=== PATIENT | male | born 1940 | race Two or more races ===

== ENCOUNTER 2024-08-27 13:42 | Inpatient (IN) | payer OTHER ==
[~2024-08-27] VITALS: Ht 177.8 cm; Wt 54.0 kg
[2024-08-27] MEDS: CEFEPIME 1 GM in IV D5W 50 ML IV ONE (14:36)
[2024-08-27] MEDS: VANCOMYCIN 1 GM in IV D5W 250 ML IV ONE (14:59)
[2024-08-27 15:01] LABS: BASOPHILS % (AUTO) 0.2 % (0.0-2.0); EOSINOPHILS # (AUTO) 0.1 K/uL (0.0-0.7); EOSINOPHILS % (AUTO) 0.6 % (0.0-6.0); HEMATOCRIT 32 % (39-51); HEMOGLOBIN 11.3 g/dL (13.5-17.5); LYMPHOCYTES # (AUTO) 0.7 K/uL (0.8-4.8); LYMPHOCYTES % (AUTO) 8.4 % (20.0-44.0); MEAN CORPUSCULAR HEMOGLOBIN 31 PG (26.0-33.0); MEAN CORPUSCULAR HGB CONC 35 g/dl (31.0-36.0); MEAN CORPUSCULAR VOLUME 88 fL (80-96); MONOCYTES # (AUTO) 0.7 K/uL (0.1-1.30); MONOCYTES % (AUTO) 8.6 % (2.0-12.0); NEUTROPHILS # (AUTO) 6.8 K/uL (1.8-8.9); NEUTROPHILS % (AUTO) 82.2 % (43.0-81.0); PLATELET COUNT (AUTO) 183 K/uL (150-450); RED BLOOD CELL COUNT(AUTO) 3.67 MIL/uL (4.5-6.0); RED CELL DISTRIBUTION WIDTH 21.9 % (11.5-15.0); WHITE BLOOD COUNT (AUTO) 8.3 K/uL (4.3-11.0)
[2024-08-27 15:30] LABS: BILIRUBIN,URINE Negative (NEGATIVE); BLOOD, URINE Large Ery/uL (NEGATIVE); KETONES,URINE Negative (NEGATIVE); LEUKOCYTE ESTERASE ,URINE Negative (NEGATIVE); NITRITE, URINE Negative (NEGATIVE); PH,URINE >8.5 (5.0-8.0); PROTEIN,URINE >=300 mg/dl (NEGATIVE); UGLUCOSE 250 MG/DL mg/dL (NEGATIVE); UROBILINOGEN,URINE 0.2 EU/dL (0.2)
[2024-08-27 15:34] LABS: LACTIC ACID 2.3 mmol/L (0.4-2.0)
[2024-08-27 15:50] LABS: ALANINE AMINOTRANSFERASE 6 U/L (12-78); ALBUMIN 2.7 g/dL (3.4-5.0); ALKALINE PHOSPHATASE 67 U/L (46-116); ASPARTATE AMINOTRANSFERASE 20 U/L (15-37); BILIRUBIN,DIRECT 0.2 mg/dL (0.0-0.2); BILIRUBIN,TOTAL 0.4 mg/dL (0.2-1.0); CALCIUM, SERUM 10.3 mg/dL (8.5-10.1); CARBON DIOXIDE 30 mmol/L (21-32); CHLORIDE 103 mmol/L (98-107); CREATININE 5.2 mg/dL (0.6-1.3); GLUCOSE 100 mg/dL (74-106); POTASSIUM 5.7 mmol/L (3.5-5.1); SODIUM SERUM 138 mmol/L (136-145); TOTAL PROTEIN, SERUM 7.2 g/dL (6.4-8.2); UREA NITROGEN, BLOOD 38 mg/dL (7-18)
[2024-08-27 16:19] LABS: COLOR,URINE RED (YELLOW)
[2024-08-27 16:20] LABS: APPEARANCE,URINE CLOUDY (CLEAR)
[2024-08-27 16:22] LABS: ADD URINE CULTURE NO; BACTERIA,URINE Rare /HPF (None Seen); RBC,URINE TOO NUMEROUS TO COUN /HPF (0-2); SQUAMOUS EPITHELIAL CELL,UR None Seen /HPF (None Seen); WBC,URINE 0-2 /HPF (0-3)
[2024-08-27 18:22] LABS: INR 1.03 (0.91-1.10); PARTIAL THROMBOPLASTIN TIME 22.7 SEC (24.3-34.3); PROTHROMBIN TIME 10.6 SECS (9.2-11.1)
[2024-08-27] MEDS ORDERED: AMLO-213 PO (18:26)
[2024-08-27] MEDS ORDERED: TURM1CAP2 PO (18:26)
[2024-08-27] MEDS ORDERED: FINA5TAB11 PO (18:26)
[2024-08-27] MEDS ORDERED: POLY119P3 PO (18:26)
[2024-08-27] MEDS ORDERED: CALC0.253 PO (18:26)
[2024-08-27] MEDS ORDERED: HYDR25SU7 RC (18:26)
[2024-08-27] MEDS ORDERED: FOLI0.8T2 PO (18:26)
[2024-08-27] MEDS ORDERED: CETI10TA14 PO (18:26)
[2024-08-27] MEDS ORDERED: MAGN250T10 PO (18:26)
[2024-08-27] MEDS ORDERED: CARB1TAB31 PO ×2 (18:26)
[2024-08-27] MEDS ORDERED: ATOR20TA PO (18:26)
[2024-08-27] MEDS ORDERED: HYDR-4076 PO (18:26)
[2024-08-27] MEDS ORDERED: DOCU-275 PO (18:26)
[2024-08-27] MEDS ORDERED: GABA-532 PO (18:26)
[2024-08-27] MEDS ORDERED: MONT10TA22 PO (18:26)
[2024-08-27] MEDS ORDERED: CHOL100043 PO (18:26)
[2024-08-27] MEDS ORDERED: MESA4ENE4 RC (18:26)
[2024-08-27] MEDS ORDERED: ALBU8.5H8 IH (18:26)
[2024-08-27] MEDS: DOCUSATE SODIUM 100 MG CAPSULE PO SCH (18:30)
[2024-08-27] MEDS: CARBIDOPA/LEVODOPA 10/100 MG 1 UDTAB PO SCH (18:30)
[2024-08-27] MEDS ORDERED: hydrALAZINE HCL 25 MG TABLET PO PRN (18:30)
[2024-08-27] MEDS ORDERED: ONDANSETRON HCL/PF 4 MG/2 ML VIAL IVP PRN (18:30)
[2024-08-27] MEDS ORDERED: CARBIDOPA/LEVODOPA 10/100 MG 1 UDTAB PO SCH (18:30)
[2024-08-27] MEDS ORDERED: ACETAMINOPHEN 325 MG TABLET PO PRN (18:30)
[2024-08-27] MEDS: GABAPENTIN 100 MG CAPSULE PO SCH (22:00)
[2024-08-27] MEDS: MONTELUKAST SODIUM (10MG) 10 MG TABLET PO SCH (22:00)
[2024-08-27] MEDS: ATORVASTATIN 10 MG TABLET PO SCH (22:00)
[2024-08-27] MEDS: OSELTAMIVIR PHOSPHATE SUSP 6 MG/ML BOTTLE PO ONE (22:00)
[2024-08-27 23:48] VITALS: O2SAT 97
[2024-08-28] VITALS: BP 134/48; TEMP 100; O2SAT 96
[2024-08-28] MEDS ORDERED: ACETAMINOPHEN 650 MG/SUPP.RECT RC ONE (00:05)
[2024-08-28] MEDS: ACETAMINOPHEN 650 MG/SUPP.RECT RC PRN (00:11)
[2024-08-28] MEDS: IV NS 0.9% 1,000 ML IV PRN (00:27)
[2024-08-28] MEDS: HEPARIN SODIUM, PORCINE 5000 UNITS/1 ML VIAL SQ SCH (01:23)
[2024-08-28 04:00] VITALS: BP 140/89; TEMP 98.2; O2SAT 99
[2024-08-28 06:41] LABS: HEMATOCRIT 30 % (39-51); HEMOGLOBIN 10.2 g/dL (13.5-17.5); LYMPHOCYTES # (AUTO) 0.5 K/uL (0.8-4.8); LYMPHOCYTES % (AUTO) 3.4 % (20.0-44.0); MEAN CORPUSCULAR HEMOGLOBIN 29 PG (26.0-33.0); MEAN CORPUSCULAR HGB CONC 34 g/dl (31.0-36.0); MEAN CORPUSCULAR VOLUME 86 fL (80-96); MONOCYTES # (AUTO) 0.5 K/uL (0.1-1.30); MONOCYTES % (AUTO) 4.1 % (2.0-12.0); NEUTROPHILS # (AUTO) 12.2 K/uL (1.8-8.9); NEUTROPHILS % (AUTO) 92.5 % (43.0-81.0); PLATELET COUNT (AUTO) 134 K/uL (150-450); RED BLOOD CELL COUNT(AUTO) 3.49 MIL/uL (4.5-6.0); RED CELL DISTRIBUTION WIDTH 22.1 % (11.5-15.0); WHITE BLOOD COUNT (AUTO) 13.2 K/uL (4.3-11.0)
[2024-08-28 06:54] LABS: CALCIUM, SERUM 9.4 mg/dL (8.5-10.1); MAGNESIUM 2.2 mg/dL (1.8-2.4); PHOSPHORUS 4.7 mg/dL (2.5-4.9); POTASSIUM 5.8 mmol/L (3.5-5.1)
[2024-08-28 08:00] VITALS: BP 140/63; TEMP 97.5; O2SAT 95
[2024-08-28] MEDS ORDERED: OSELTAMIVIR PHOSPHATE 75 MG CAPSULE PO SCH (08:00)
[2024-08-28] MEDS: CARBIDOPA/LEVODOPA 10/100 MG 1 UDTAB PO SCH (09:00)
[2024-08-28] MEDS: CALCITRIOL 0.25 MCG CAPSULE PO SCH (09:00)
[2024-08-28] MEDS: VIT B CMPLX 3/FA/VIT C/BIOTIN 1 TAB TABLET PO SCH (09:58)
[2024-08-28] MEDS: cetrizine 10 MG TABLET PO SCH (09:58)
[2024-08-28] MEDS: CHOLECALCIFEROL 1,000 UNIT TABLET (VIT D3) PO SCH (09:58)
[2024-08-28] MEDS: THERAHONEY GEL 1.5 OZ TUBE TP SCH (09:59)
[2024-08-28] MEDS: FINASTERIDE (5 MG) 5 MG TABLET PO SCH (09:59)
[2024-08-28] MEDS: AMLODIPINE BESYLATE 10 MG TABLET PO SCH (09:59)
[2024-08-28 12:00] VITALS: BP 119/63; TEMP 99; O2SAT 95
[2024-08-28 16:00] VITALS: BP 121/59; TEMP 99.1; O2SAT 96
[2024-08-28] MEDS ORDERED: LEVOFLOXACIN 250 MG /D5W 50 ML 250 MG in PREMIX 1 EA IV SCH (20:00)
[2024-08-28] MEDS ORDERED: LEVOFLOXACIN (250MG) 250 MG TABLET PO SCH (21:00)
== END 2024-08-28 22:08 | disposition short-term general hospital (02) | DRG 193 ==
LOC: ER 13:45 → TELE1 23:01 → TELE-TD 08-28 00:18 → TELE1 08-28 11:41
PROVIDERS: ADMIT Nurse Practitioner Acute Care
PROC: 5A1D70Z Performance of Urinary Filtration, Intermittent, Less than 6 Hours Per Day (ICD-10-PCS; principal; 2024-08-28)
DX: J10.08 Influenza due to other identified influenza virus with other specified pneumonia (principal); G93.41 Metabolic encephalopathy; J96.01 Acute respiratory failure with hypoxia; N18.6 End stage renal disease; I12.0 Hypertensive chronic kidney disease with stage 5 chronic kidney disease or end stage renal disease; E44.0 Moderate protein-calorie malnutrition; E87.20 Acidosis, unspecified; J15.9 Unspecified bacterial pneumonia; E86.0 Dehydration; Z20.822 Contact with and (suspected) exposure to COVID-19; F02.80 Dementia in other diseases classified elsewhere, unspecified severity, without behavioral disturbance, psychotic disturbance, mood disturbance, and anxiety; G20.A1 Parkinson's disease without dyskinesia, without mention of fluctuations; Z88.0 Allergy status to penicillin; Z79.51 Long term (current) use of inhaled steroids; Z79.899 Other long term (current) drug therapy; E87.5 Hyperkalemia; M89.8X9 Other specified disorders of bone, unspecified site; E88.09 Other disorders of plasma-protein metabolism, not elsewhere classified; D64.9 Anemia, unspecified; Z86.73 Personal history of transient ischemic attack (TIA), and cerebral infarction without residual deficits; Z99.2 Dependence on renal dialysis; L89.156 Pressure-induced deep tissue damage of sacral region
CPT/HCPCS: 31720; 36415; 70450-TC; 71045-TC; 80048-TC; 80076-TC; 81001; 83605-TC; 83735-TC; 84100-TC; 84484-TC; 85025-TC; 85730-TC; 86706; 87040-TC; 87086-TC; 87340; 90935-TC; A4223; A4624; A6403; G0378; J0692; J1644; J3370; J7030; J7060

== ENCOUNTER 2024-09-07 16:15 | Inpatient (IN) | payer OTHER ==
[~2024-09-07] VITALS: Ht 175.3 cm; Wt 60.8 kg
[~2024-09-07 16:15] MED LIST: ALBU8.5H8 IH; AMLO-213 PO; ATOR20TA PO; CALC0.253 PO; CARB1TAB31 PO; CETI10TA14 PO; CHOL100043 PO; DOCU-275 PO; FINA5TAB11 PO; FOLI0.8T2 PO; GABA-532 PO; HYDR-4076 PO; HYDR25SU7 RC; MAGN250T10 PO; MESA4ENE4 RC; MONT10TA22 PO; POLY119P3 PO; TURM1CAP2 PO
[2024-09-07 16:41] LABS: ABG BASE EXCESS 1.4 mmol/L (-2.0-3.0); ABG OXYGEN SATURATION 93.8 % (94.0-98.0); ABG PCO2 38.6 mmHg (35.0-48.0); ABG PH 7.438 (7.350-7.450); ABG TOTAL HEMOGLOBIN 11.5 G/dL (13.5-17.5); MetHb 0.3 % (0.0-1.5); O2Hb 93.5 % (94.0-97.0); SITE, ABG RIGHT BRACHIAL
[2024-09-07 17:40] LABS: BASOPHILS % (AUTO) 0.1 % (0.0-2.0); EOSINOPHILS % (AUTO) 0.1 % (0.0-6.0); HEMATOCRIT 33 % (39-51); HEMOGLOBIN 10.9 g/dL (13.5-17.5); LYMPHOCYTES # (AUTO) 0.4 K/uL (0.8-4.8); LYMPHOCYTES % (AUTO) 2.5 % (20.0-44.0); MEAN CORPUSCULAR HEMOGLOBIN 27 PG (26.0-33.0); MEAN CORPUSCULAR HGB CONC 33 g/dl (31.0-36.0); MEAN CORPUSCULAR VOLUME 82 fL (80-96); MONOCYTES # (AUTO) 1.2 K/uL (0.1-1.30); MONOCYTES % (AUTO) 6.9 % (2.0-12.0); NEUTROPHILS # (AUTO) 15.4 K/uL (1.8-8.9); NEUTROPHILS % (AUTO) 90.4 % (43.0-81.0); PLATELET COUNT (AUTO) 252 K/uL (150-450); RED BLOOD CELL COUNT(AUTO) 4.05 MIL/uL (4.5-6.0); RED CELL DISTRIBUTION WIDTH 21.9 % (11.5-15.0)
[2024-09-07 17:52] LABS: INR 1.23 (0.91-1.10); PARTIAL THROMBOPLASTIN TIME 27.3 SEC (24.3-34.3); PROTHROMBIN TIME 12.9 SECS (9.2-11.1)
[2024-09-07 17:55] LABS: CALCIUM, SERUM 8.9 mg/dL (8.5-10.1); CARBON DIOXIDE 27 mmol/L (21-32); CHLORIDE 100 mmol/L (98-107); CREATININE 3.6 mg/dL (0.6-1.3); GLUCOSE 108 mg/dL (74-106); POTASSIUM 5.5 mmol/L (3.5-5.1); SODIUM SERUM 136 mmol/L (136-145); UREA NITROGEN, BLOOD 18 mg/dL (7-18)
[2024-09-07 18:00] LABS: ALANINE AMINOTRANSFERASE 9 U/L (12-78); ALKALINE PHOSPHATASE 74 U/L (46-116); ASPARTATE AMINOTRANSFERASE 49 U/L (15-37); BILIRUBIN,DIRECT 0.1 mg/dL (0.0-0.2); BILIRUBIN,TOTAL 0.8 mg/dL (0.2-1.0); TOTAL PROTEIN, SERUM 7.5 g/dL (6.4-8.2)
[2024-09-07 18:04] LABS: LACTIC ACID 2.4 mmol/L (0.4-2.0)
[2024-09-07] MEDS: AZTREONAM 2 G in IV NS 0.9% 100 ML IV ONE (19:10)
[2024-09-07] MEDS: VANCOMYCIN 1 GM in IV D5W 250 ML IV ONE (20:00)
[2024-09-07] MEDS ORDERED: MAGNESIUM HYDROXIDE 30 ML UDC PO PRN (20:30)
[2024-09-07] MEDS ORDERED: MESALAMINE RC PRN (20:30)
[2024-09-07] MEDS ORDERED: ALBUTEROL SULFATE 8 GM HFA.AER.AD IH PRN (20:30)
[2024-09-07] MEDS ORDERED: ACETAMINOPHEN 325 MG TABLET PO PRN (20:30)
[2024-09-07] MEDS ORDERED: Z GUARD REMEDY 4 OZ OINT TP PRN (20:30)
[2024-09-07] MEDS ORDERED: ONDANSETRON HCL/PF 4 MG/2 ML VIAL IVP PRN (20:30)
[2024-09-07] MEDS ORDERED: MAG HYDROX/AL HYDROX/SIMETH 30 ML UDC PO PRN (20:30)
[2024-09-07] MEDS ORDERED: hydrALAZINE HCL 25 MG TABLET PO PRN (20:30)
[2024-09-08] MEDS ORDERED: SODIUM ZIRCONIUM CYCLOSILICATE 5 GM POWD.PACK ONE (01:46)
[2024-09-08] MEDS ORDERED: GABAPENTIN 100 MG CAPSULE ONE (01:47)
[2024-09-08] MEDS: SODIUM ZIRCONIUM CYCLOSILICATE 10 GM POWD.PACK PO ONE (01:49)
[2024-09-08] MEDS: MONTELUKAST SODIUM (10MG) 10 MG TABLET PO SCH (01:49)
[2024-09-08] MEDS: CARBIDOPA/LEVODOPA 10/100 MG 1 UDTAB PO SCH ×2 (01:49→09:00)
[2024-09-08] MEDS: GABAPENTIN 100 MG CAPSULE PO SCH (01:49)
[2024-09-08 04:28] LABS: ABG BASE EXCESS 6.3 mmol/L (-2.0-3.0); ABG OXYGEN SATURATION 96.5 % (94.0-98.0); ABG PCO2 38.7 mmHg (35.0-48.0); ABG PH 7.504 (7.350-7.450); ABG PO2 92.7 mmHg (83.0-108.0); ABG TOTAL HEMOGLOBIN 10.8 G/dL (13.5-17.5); COHb 0.3 % (0.5-1.5); MetHb 0.3 % (0.0-1.5); O2Hb 95.9 % (94.0-97.0); SITE, ABG RIGHT RADIAL
[2024-09-08] MEDS ORDERED: AZTREONAM 1 G in IV NS 0.9% 100 ML IV SCH (05:00)
[2024-09-08 05:56] LABS: BASOPHILS % (AUTO) 0.1 % (0.0-2.0); EOSINOPHILS % (AUTO) 0.4 % (0.0-6.0); HEMATOCRIT 31 % (39-51); HEMOGLOBIN 11.3 g/dL (13.5-17.5); LYMPHOCYTES # (AUTO) 0.6 K/uL (0.8-4.8); LYMPHOCYTES % (AUTO) 4.9 % (20.0-44.0); MEAN CORPUSCULAR HEMOGLOBIN 32 PG (26.0-33.0); MEAN CORPUSCULAR HGB CONC 36 g/dl (31.0-36.0); MEAN CORPUSCULAR VOLUME 88 fL (80-96); MONOCYTES % (AUTO) 8.5 % (2.0-12.0); NEUTROPHILS # (AUTO) 10.1 K/uL (1.8-8.9); NEUTROPHILS % (AUTO) 86.1 % (43.0-81.0); PLATELET COUNT (AUTO) 210 K/uL (150-450); RED BLOOD CELL COUNT(AUTO) 3.58 MIL/uL (4.5-6.0); RED CELL DISTRIBUTION WIDTH 21.2 % (11.5-15.0); WHITE BLOOD COUNT (AUTO) 11.7 K/uL (4.3-11.0)
[2024-09-08 06:05] LABS: CALCIUM, SERUM 9.3 mg/dL (8.5-10.1); CREATININE 4.2 mg/dL (0.6-1.3); MAGNESIUM 2.1 mg/dL (1.8-2.4); PHOSPHORUS 4.2 mg/dL (2.5-4.9); POTASSIUM 4.1 mmol/L (3.5-5.1)
[2024-09-08] MEDS: AZTREONAM 1 G in IV NS 0.9% 100 ML IV SCH (07:52)
[2024-09-08] MEDS ORDERED: VANCOMYCIN POST DIALYSIS 500MG IV PRN (08:00)
[2024-09-08 09:00] VITALS: BP 163/50; TEMP 97.7; O2SAT 100
[2024-09-08] MEDS: FINASTERIDE (5 MG) 5 MG TABLET PO SCH (09:00)
[2024-09-08] MEDS: AMLODIPINE BESYLATE 10 MG TABLET PO SCH (09:00)
[2024-09-08] MEDS: CHOLECALCIFEROL 1,000 UNIT TABLET (VIT D3) PO SCH (09:00)
[2024-09-08] MEDS: CALCITRIOL 0.25 MCG CAPSULE PO SCH (09:00)
[2024-09-08] MEDS: VIT B CMPLX 3/FA/VIT C/BIOTIN 1 TAB TABLET PO SCH (09:00)
[2024-09-08] MEDS: ATORVASTATIN 10 MG TABLET PO SCH (09:00)
[2024-09-08] MEDS: DOCUSATE SODIUM 100 MG CAPSULE PO SCH (17:35)
[2024-09-08] MEDS ORDERED: NEPRO VAN 237 ML CAN PO PRN (18:00)
[2024-09-08 20:00] VITALS: BP 151/62; TEMP 97.9; O2SAT 97
== END 2024-09-09 | disposition short-term general hospital (02) | DRG 871 ==
LOC: ER 16:20 → TRANSITION 09-08 03:36 → TELE1 09-08 06:06
PROVIDERS: ADMIT Nurse Practitioner Acute Care; ATTEND Internal Medicine
PROC: 05HB33Z Insertion of Infusion Device into Right Basilic Vein, Percutaneous Approach (ICD-10-PCS; principal; 2024-09-07)
PROC: 5A1D70Z Performance of Urinary Filtration, Intermittent, Less than 6 Hours Per Day (ICD-10-PCS; 2024-09-08)
DX: A41.9 Sepsis, unspecified organism (principal); G93.41 Metabolic encephalopathy; J15.69 Pneumonia due to other Gram-negative bacteria; J96.01 Acute respiratory failure with hypoxia; N18.6 End stage renal disease; E44.0 Moderate protein-calorie malnutrition; J44.0 Chronic obstructive pulmonary disease with (acute) lower respiratory infection; I13.2 Hypertensive heart and chronic kidney disease with heart failure and with stage 5 chronic kidney disease, or end stage renal disease; I48.20 Chronic atrial fibrillation, unspecified; D68.59 Other primary thrombophilia; E87.20 Acidosis, unspecified; Z20.822 Contact with and (suspected) exposure to COVID-19; G20.A1 Parkinson's disease without dyskinesia, without mention of fluctuations; Z88.0 Allergy status to penicillin; Z79.51 Long term (current) use of inhaled steroids; Z79.899 Other long term (current) drug therapy; I50.9 Heart failure, unspecified; M89.8X9 Other specified disorders of bone, unspecified site; Z87.19 Personal history of other diseases of the digestive system; E87.5 Hyperkalemia; N40.0 Benign prostatic hyperplasia without lower urinary tract symptoms; E88.09 Other disorders of plasma-protein metabolism, not elsewhere classified; E78.5 Hyperlipidemia, unspecified; F09 Unspecified mental disorder due to known physiological condition; Z99.2 Dependence on renal dialysis; D63.1 Anemia in chronic kidney disease; Z74.09 Other reduced mobility
CPT/HCPCS: 36415; 70450-TC; 71045-TC; 80048-TC; 80076-TC; 80202-TC; 82803-TC; 83605-TC; 83735-TC; 84100-TC; 84484-TC; 85025-TC; 85730-TC; 87040-TC; 87081-TC; A4223; G0378; J3370; J3490; J7030; J7060